=== PATIENT | female | born 2005 | race Two or more races ===

== ENCOUNTER 2024-04-08 01:42 | Emergency (ER) | payer MEDICAID ==
[~2024-04-08] VITALS: Ht 162.6 cm; Wt 65.9 kg
[2024-04-08 01:46] VITALS: BP 128/89; RESP 22; O2SAT 98
[2024-04-08 02:59] VITALS: PULSE 71
== END 2024-04-08 04:00 | disposition home or self-care (01) ==
LOC: ER 01:42 → EDBD 01:42 → ER 01:51
DX: R00.2 Palpitations (principal); F41.9 Anxiety disorder, unspecified; R07.9 Chest pain, unspecified
CPT/HCPCS: 93005

== ENCOUNTER 2025-08-03 01:42 | Emergency (ER) | payer MEDICAID ==
[~2025-08-03] VITALS: Ht 162.6 cm; Wt 95.0 kg
--- NOTE | 2025-08-03 03:02 | ED.PDOC ---
[employer] HPI Comments HPI: Poor Historian. 19-year-old female presents to emergency department for evaluation of vaginal bleed where she noticed a large blood clot that made her worry however she has no symptoms whatsoever. Patient has history of irregular cycles. Her cycle started yesterday. Patient is on control pills and is following up with a doctor who is planning on switching her control pills. Patient denies . Past Medical History: Irregular cycles, gastritis Past Surgical History: Appendectomy REVIEW OF SYSTEMS: CONSTITUTIONAL: Denies acute: fever, diaphoresis, chills, generalized weakness. HEAD: Denies acute: headache, photophobia Eyes: Denies acute: Double vision, vision loss, eye pain, eye discharge. EARS: Denies acute: tinnitus, hearing loss, ear discharge, ear pain, THROAT: Denies acute: sore throat, swelling, difficulty swallowing , pain with swallowing, change in voice. NECK: Denies acute: neck pain, neck swelling, stiff neck. HEART: Denies acute : chest pain, palpitations, LUNGS: Denies acute: SOB, wheezing, cough, hemoptysis ABDOMEN: Denies acute: abdominal pain, Nausea, Vomiting, diarrhea, melena , hematemesis, hematochezia SKIN: Denies acute: rash, redness, lesions, itchiness. EXTREMITIES: Denies acute: calf pain, numbness, tingling, weakness, denies pain in extremity. Denies acute: Low back pain. Neuro: Denies acute: focal neurological deficit, motor or sensory focal neurological deficit, tremors, seizure like activity, confusion, dizziness, change in mental status, loss of bowel or bladder function, cauda equina like symptoms. : Denies acute: dysuria, hematuria, flank pain, increase in urinary frequency. PSYCH: Denies acute: hallucination, suicidal ideation, homicidal ideation. FEMALE: Denies acute: foul odor, unusual discharge. PHYSICAL EXAM: General: -----no---acute distress, awake and alert. Head: normocephalic, atraumatic. No raccoon's eyes, no bryant sign. Neck: supple, trachea is midline, no swelling. Throat: Normal phonation. Eyes:, no erythema, no purulent discharge, no proptosis, no icterus. Heart: regular rate, regular rhythm, no significant murmur appreciated. Lungs: no apparent respiratory distress, Able to speak in full sentences. No wheezing, no rhonchi, no crackles. No stridors Clear to auscultation bilaterally. Abdomen: non tender to palpation, non distended, soft, no guarding, no rebound, + bowel sounds. Neuro: Awake, Alert, oriented to name, self, situation, follows commands GCS=15. Speech is normal. Skin: no petechia, no purpura, no cyanosis, non-pale, not jaundice. Lower extremities: --no - Pitting edema no deformity, no focal swelling, no calf TTP. Makes eye contact. moves all four extremities. Face: no apparent facial droop. Ambulating in the ED independently. ED COURSE: DISCLAIMER: This medical document was created using an electronic medical record system with voice recognition software and computerized dictation system. Although this document has been carefully reviewed, there might still be some phonetic and typographical errors. Occasional wrong-word or "sound-alike" substitutions may have occurred due to the inherent limitations of voice recognition software. These areas are purely typographical due to imperfections of the software programs and do not reflect any compromise in the patient's medical care. Please read the chart carefully and recognize, using context, where these substitutions have occurred. Chief Complaint: Vaginal Bleed Time Seen by MD: 02:14 Reviewed Notes: Allergies Allergies: Coded Allergies: NO KNOWN ALLERGIES (Unverified , 05/15/12) Information Source: Patient Past Medical History PAST MEDICAL HISTORY: Anxiety Surgical History: Denies all surgeries Family History Family History: Unknown Social History Smoker: Non-Smoker Alcohol: Denies ETOH Use Drugs: Denies Drug Use Lives In: Home Differential Diagnosis ([employer]) Vaginal Bleeding: Other (Differential diagnosis includes but not limited to DU B, menorrhea, metromenorrhagia, neoplasm, coagulopathy,, trauma, miscarriage, placenta previa, placental abruption, ) X-Ray, Labs, Meds, VS Vital Signs Date Time Temp Pulse Resp B/P (MAP) Pulse Ox O2 Delivery O2 Flow Rate FiO2 08/03/25 04:39 98.1 72 14 112/79 (90) 98 98.1 08/03/25 04:21 Room Air 0 08/03/25 03:13 98.1 93 16 124/88 (100) 98 98.1 08/03/25 01:43 98.2 98 18 124/78 99 98.2 Lab Test 08/03/25 02:40 Range/Units White Blood Count 11.5 H 4.4-10.8 10^3/uL Red Blood Count 5.73 H 4.0-5.20 10^6/uL Hemoglobin 13.5 12.2-16.2 g/dL Hematocrit 42.2 36.0-46.0 % Mean Corpuscular Volume 73.6 L 80.0-100.0 fL Mean Corpuscular Hemoglobin 23.6 L 28.0-32.0 pg Mean Corpuscular Hemoglobin Concent 32.0 32.0-36.0 g/dL Red Cell Distribution Width 17.8 H 11.8-14.3 % Platelet Count 207 140-450 10^3/uL Mean Platelet Volume 9.9 6.9-10.8 fL Neutrophils (%) (Auto) 73.4 37.0-80.0 % Lymphocytes (%) (Auto) 19.7 10.0-50.0 % Monocytes (%) (Auto) 5.6 0.0-12.0 % Eosinophils (%) (Auto) 0.5 0.0-7.0 % Basophils (%) (Auto) 0.8 0.0-2.0 % Neutrophils # (Auto) 8.5 1.6-8.6 10 ^3/uL Lymphocytes # (Auto) 2.3 0.4-5.4 10 ^3/uL Monocytes # (Auto) 0.6 0-1.3 10 ^3/uL Eosinophils # (Auto) 0.1 0-0.8 10 ^3/uL Basophils # (Auto) 0.1 0-0.2 10 ^3/uL Nucleated Red Blood Cells 0.0 % Sodium Level 139 136-145 mmol/L Potassium Level 3.9 3.5-5.1 mmol/L Chloride Level 102 98-107 mmol/L Carbon Dioxide Level 26 20-31 mmol/L Anion Gap 11 5-15 Blood Urea Nitrogen 10 9-23 mg/dL Creatinine 0.56 0.550-1.02 mg/dL Glomerular Filtration Rate Calc 134 >90 mL/min BUN/Creatinine Ratio 17.9 10.0-20.0 Serum Glucose 89 74-106 mg/dL Calcium Level 9.4 8.7-10.4 mg/dL Total Bilirubin 0.3 0.2-1.0 mg/dL Aspartate Amino Transferase (AST) 20 13-40 U/L Alanine Aminotransferase (ALT) 30 7-40 U/L Alkaline Phosphatase 114 46-116 U/L Total Protein 8.0 5.7-8.2 g/dL Albumin 4.5 3.2-4.8 g/dL [place] [address] Ph: [phone] DIAGNOSTIC IMAGING Diagnostic Imaging Report : [id number] Signed PATIENT: RONALD CUETO ACCT: [id number] UNIT: [id number] : 2005 LOC: ER ROOM / BED: / AGE / SEX: 19 / F ADM STATUS: REG ER SERVICE 4 ORDERING PHYSICIAN: EPIFANIO BAILEY DO PROCEDURE(s): PELUS - PELVIC REASON: vag bleed ORDER NUMBER(s): [id number], ACCESSION NUMBER(s): [id number] INDICATION: vag bleed TECHNIQUE: Multiple real-time grayscale transabdominal sonographic images along with color and duplex Doppler of the uterus and ovaries were obtained. COMPARISON: US PELVIS COMPLETE on DOS: 03/13/24, US PELVIS COMPLETE on DOS: 06/11/23 FINDINGS: The uterus measures 6.8 x 3.5 x 3.8 cm. The endometrial stripe measures 11 mm. Right ovary measures 3.3 x 3.3 x 3.4 cm with normal Doppler color flow. Phys iologic follicle. Left ovary measures 1.4 x 1 x 1.3. cm with normal Doppler color flow. No visualized ascites. IMPRESSION: 1. Unremarkable transabdominal pelvic ultrasound. ATED BY: JEN CRENSHAW MD DICTATED DATE/TIME: 08/03/25305 SIGNED BY: JEN CRENSHAW MD SIGNED DATE/TIME: 08/03/25305 CC: Time of 1ST Reevaluation: 03:43 Reevaluation 1ST: Unchanged Patient Education/Counseling: Diagnosis, Treatment Family Education/Counseling: No Family Present Comments MDM: patient presented with the above HPI.---vaginal bleed---workup was initiated. patient was found with the above mentioned diagnosis. the following medications were ordered: please refer to order lists of meds and tests obtained by myself Dr. Bailey. Patient ED course and VS have been stabilized. Patient has been reassessed in the ED and remained in a stable condition. Pertinent incidental findings were discussed with the patient and/or family. Patient/family voices understanding and is agreeable with plan. Patient has been observed in the ED adequate length of time to insure im provement/stability. Escalation of care considered: Consideration of escalation to observation or admission Patient was DISCHARGED home in a stable condition. All the reports of any imaging studies that were ordered by myself were reviewed by myself. Departure 1 Departure Time of Disposition: 03:01 Impression: Primary Impression: Vaginal bleeding Disposition: HOME / SELF CARE / HOMELESS Condition: Stable Additional Instructions: Additional instructions: Please read all instructions provided in this packet carefully. You MUST follow-up with your primary care/family doctor in 1 to 2 days. If you are unable to see your primary care/family doctor, please return to our emergency room for re-assessment and re-evaluation in 1 to 2 days. Return to the emergency room here in our facility or to the nearest ER [facility] if your symptoms change or worsen. CONSULTATIONS: you MUST Follow-up for consultation as soon as possible with: Dr.-Ob Delarosa doctor in 1-2 days. Please call for appointment. You MUST call the consultants office yourself to make an appointment. You may need to arrange that through your insurance and/or your primary/family doctor. If you are unable to see the agriculture consultant in 1 to 2 days, you must return to our emergency room (or any other ER of your choice) for re-assessment and re- evaluation. Adequate fluid hydration. Although you have been discharged from the Emergency Department, this does not mean that you have a "clean bill of health". No definitive diagnosis for your symptoms has been made today. It is possible that you are in the process of developing a serious illness. This is why you must return to the ED without fail if any new or worsening symptoms develop. Repeat CBC levels in 48-72 hours. Take daily iron supplements. Below is a copy of your radiological report for follow up: [facility] [id number] [facility] [address] Ph: [phone] DIAGNOSTIC IMAGING Diagnostic Imaging Report : [id number] Signed PATIENT: RONALD CUETO ACCT: [id number] UNIT: [id number] : 2005 LOC: ER ROOM / BED: / AGE / SEX: 19 / F ADM STATUS: REG ER SERVICE 4 ORDERING PHYSICIAN: EPIFANIO BAILEY DO PROCEDURE(s): PELUS - PELVIC REASON: vag bleed ORDER NUMBER(s): [id number], ACCESSION NUMBER(s): [id number] INDICATION: vag bleed TECHNIQUE: Multiple real-time grayscale transabdominal sonographic images along with color and duplex Doppler of the uterus and ovaries were obtained. COMPARISON: US PELVIS COMPLETE on DOS: 03/13/24, US PELVIS COMPLETE on DOS: 06/11/23 FINDINGS: The uterus measures 6.8 x 3.5 x 3.8 cm. The endometrial stripe measures 11 mm. Right ovary measures 3.3 x 3.3 x 3.4 cm with normal Doppler color flow. Physiologic follicle. Left ovary measures 1.4 x 1 x 1.3. cm with normal Doppler color flow. No visualized ascites. IMPRESSION: 1. Unremarkable transabdominal pelvic ultrasound. ATED BY: JEN CRENSHAW MD DICTATED DATE/TIME: 08/03/25305 SIGNED BY: JEN CRENSHAW MD SIGNED DATE/TIME: 08/03/25305 CC: Discharged With: Self Critical Care Note Critical Care Time?: No EPIFANIO BAILEY DO Aug 03, 2025 03:01
[2025-08-03] MEDS: SODIUM CHLORIDE 0.9% 1,000 ML IV ONE (03:08)
--- NOTE | 2025-08-03 03:09 | DVH ---
INDICATION: vag bleed TECHNIQUE: Multiple real-time grayscale transabdominal sonographic images along with color and duplex Doppler of the uterus and ovaries were obtained. COMPARISON: US PELVIS COMPLETE on DOS: 03/13/24, US PELVIS COMPLETE on DOS: 06/11/23 FINDINGS: The uterus measures 6.8 x 3.5 x 3.8 cm. The endometrial stripe measures 11 mm. Right ovary measures 3.3 x 3.3 x 3.4 cm with normal Doppler color flow. Physiologic follicle. Left ovary measures 1.4 x 1 x 1.3. cm with normal Doppler color flow. No visualized ascites. IMPRESSION: 1. Unremarkable transabdominal pelvic ultrasound.
[2025-08-03 03:11] LABS: Hemoglobin 13.5 g/dL (12.2-16.2)
[2025-08-03 03:12] LABS: Hematocrit 42.2 % (36.0-46.0); Mean Corpuscular Hemoglobin 23.6 pg (28.0-32.0); Mean Corpuscular Volume 73.6 fL (80.0-100.0); Nucleated Red Blood Cells % 0.0 %
[2025-08-03 03:23] LABS: Alanine Aminotransferase 30 U/L (7-40); Albumin 4.5 g/dL (3.2-4.8); Alkaline Phosphatase 114 U/L (46-116); Anion Gap 11 (5-15); BUN/Creatinine Ratio 17.9 (10.0-20.0); Blood Urea Nitrogen 10 mg/dL (9-23); Calcium 9.4 mg/dL (8.7-10.4); Carbon Dioxide 26 mmol/L (20-31); Chloride 102 mmol/L (98-107); Glucose 89 mg/dL (74-106); Potassium 3.9 mmol/L (3.5-5.1); Sodium 139 mmol/L (136-145); Total Protein 8.0 g/dL (5.7-8.2)
[2025-08-03 03:24] LABS: Bilirubin, Total 0.3 mg/dL (0.2-1.0)
[2025-08-03 04:39] VITALS: BP 112/79; PULSE 72; RESP 14; TEMP 98.1; O2SAT 98
== END 2025-08-03 04:40 | disposition home or self-care (01) ==
LOC: ER 01:42
DX: N93.9 Abnormal uterine and vaginal bleeding, unspecified (principal); Z87.19 Personal history of other diseases of the digestive system; Z90.49 Acquired absence of other specified parts of digestive tract
CPT/HCPCS: 36415; 76856; 80053; 85025; 86850; 86900; 86901